=== PATIENT | female | born 1950 | race Caucasian/White ===

== ENCOUNTER 2018-10-05 22:35 | Emergency (ER) | payer OTHER ==
[~2018-10-05] VITALS: Ht 157.5 cm; Wt 61.2 kg
[2018-10-05] MEDS ORDERED: METFORMIN HCL500 MG (22:49)
[2018-10-06] MEDS ORDERED: [UNRECOGNIZED DRUG - OTHER] (20:30)
== END 2018-10-06 07:29 | disposition home or self-care (01) ==
LOC: ER 22:35
DX: E11.65 Type 2 diabetes mellitus with hyperglycemia (principal); R11.2 Nausea with vomiting, unspecified; Z79.84 Long term (current) use of oral hypoglycemic drugs

== ENCOUNTER 2018-10-06 20:19 | Emergency (ER) | payer OTHER ==
[~2018-10-06] VITALS: Ht 157.5 cm; Wt 92.5 kg
[~2018-10-06 20:19] MED LIST: METFORMIN HCL500 MG
[2018-10-06] MEDS ORDERED: [UNRECOGNIZED DRUG - OTHER] (20:30)
== END 2018-10-06 23:40 | disposition home or self-care (01) ==
LOC: ER 20:19
DX: J09.X2 Influenza due to identified novel influenza A virus with other respiratory manifestations (principal); R50.9 Fever, unspecified

== ENCOUNTER 2021-10-03 16:35 | Emergency (ER) | payer OTHER ==
[~2021-10-03] VITALS: Ht 157.5 cm; Wt 56.2 kg
[~2021-10-03 16:35] MED LIST changes: +[UNRECOGNIZED DRUG - OTHER]
[2021-10-03] MEDS ORDERED: CARBIDOPA-LEVO1 EA10 (17:37)
[2021-10-03] MEDS ORDERED: METFORMIN HCL850 M1 PO (17:37)
== END 2021-10-03 22:28 | disposition home or self-care (01) ==
LOC: ER 16:35
DX: S09.90XA Unspecified injury of head, initial encounter (principal); W08.XXXA Fall from other furniture, initial encounter; Y93.9 Activity, unspecified; Y92.019 Unspecified place in single-family (private) house as the place of occurrence of the external cause; G20 Parkinson's disease

== ENCOUNTER 2024-07-11 19:45 | Inpatient (IN) | payer OTHER ==
[~2024-07-11] VITALS: Ht 157.5 cm; Wt 51.7 kg
[~2024-07-11 19:45] MED LIST changes: +CARBIDOPA-LEVO1 EA10; +METFORMIN HCL850 M1 PO
--- NOTE | 2024-07-11 20:22 | NUR ---
SE RECIBE PTE ALERTA Y ORIENTADA X3 CUAL REFIERE SE PRIYA HOY EN LA NOCHE DE RAJINDER PROPIOS PIES Y SE GOLPEO EN LA YARY. NIEGA NAUSES, VOMITOS NI PERDIDA DE CONOCIMIENTO. SE KATIE S/V Y SE UBICA.
--- NOTE | 2024-07-12 03:45 | NUR ---
DR. RICHMOND EVALUA PTE, AL MOMENTO ORDENA XRAYS LOS CUALES SE NOTIFICAN.
[2024-07-12] MEDS ORDERED: KETOROLAC TROMETHAMINE 30 MG VIAL IV STA (03:51)
[2024-07-12] MEDS ORDERED: 0.9 % SODIUM CHLORIDE 1,000 ML IV STA (03:51)
[2024-07-12] MEDS ORDERED: MORPHINE SULFATE 4 MG/ML VIAL IV STA (03:52)
[2024-07-12] MEDS ORDERED: KETOROLAC TROMETHAMINE 30 MG VIAL ONE (04:10)
[2024-07-12 04:58] LABS: BASO % 0.2 % (0.1-1.2); EOS # 0.01 (0.04-0.54); EOS % 0.1 % (0.7-7.0); HEMATOCRIT 30.3 % (34.1-44.9); HEMOGLOBIN 9.6 g/dL (11.2-15.7); LYMPH # 0.86 (1.18-3.74); LYMPH % 6.2 % (19.3-53.1); MEAN CORPUSCULAR HEMOGLOBIN 20.7 pg (25.6-32.2); MONO # 0.57 (0.24-0.82); MONO % 4.1 % (4.7-12.5); NEUT # 12.28 (1.56-6.13); NEUT % 89.2 % (34.0-71.1); PLATELET COUNT 151 K/uL (163-369); RED BLOOD COUNT 4.63 M/uL (3.93-5.22); RED CELL DISTRIBUTION WIDTH 14.8 % (11.6-14.4)
[2024-07-12 05:13] LABS: INR 1.15; PARTIAL THROMBOPLASTIN TIME 29.3 SECONDS (22.0-34.0); PROTHROMBIN TIME 12.4 SECONDS (9.0-11.5)
[2024-07-12 05:18] LABS: ALBUMIN 3.9 gm/dL (3.4-5.0); BILIRUBIN TOTAL 0.66 mg/dL (0.3-1.2); CALCIUM 9.1 mg/dL (8.5-10.1); CREATININE SERUM 1.11 mg/dL (0.55-1.02); GFR 47.92; GLOBULINA 3.5 G/DL (2.4-3.5); POTASSIUM 4.2 mEq/L (3.5-5.1); TOTAL PROTEIN 7.4 gm/dL (6.4-8.2)
--- NOTE | 2024-07-12 12:00 | NUR ---
PTE ALERTA, ORIENTADA EN PERSONA, ACOMPANADA DE FAMILIAR. EN FELICITAS BAJA CON BARANDAS ELEVADFAS POR SEGURIDAD. CANALIZACION PATENTE, ASHA DE EDEMA Y ERITEMA, RECIBIENDO IV FLUIDS. PEND CONSULTA CON DR BOATENG
[2024-07-12] MEDS ORDERED: CEFTRIAXONE SODIUM 2,000 MG in 0.9 % SODIUM CHLORIDE 100 ML IV SCH (17:34)
[2024-07-12] MEDS ORDERED: CARBIDOPA/LEVODOPA 25/100 UDTAB PO SCH (17:38)
[2024-07-12] MEDS ORDERED: DEXTROSE 50 % IN WATER 0.5 G/ML DISP.SYRIN IV PRN (17:45)
[2024-07-12] MEDS ORDERED: 0.9 % SODIUM CHLORIDE 1,000 ML IV SCH (17:45)
[2024-07-12] MEDS ORDERED: ACETAMINOPHEN 325 MG TABLET PO PRN (17:45)
[2024-07-12] MEDS ORDERED: INSULIN LISPRO 1,000 UNIT/10 ML UNITS SUBCUTANEO PRN (17:45)
[2024-07-12] MEDS ORDERED: MORPHINE SULFATE 2 MG/ML CARTRIDGE IV PRN ×2 (17:45→21:30)
[2024-07-12] MEDS ORDERED: SODIUM CL 0.9% 100 ML IV.SOLN IV ONE (19:33)
[2024-07-13] VITALS: BP 124/56; O2SAT 91
[2024-07-13 08:47] VITALS: BP 110/68; O2SAT 96
[2024-07-13 15:52] VITALS: BP 102/67; O2SAT 100
[2024-07-13] MEDS ORDERED: PATIENTS OWN MEDICATION (MEDICAMENTO EN PISO) PO SCH (17:00)
[2024-07-13] MEDS ORDERED: RISPERIDONE 0.25 MG TABLET PO SCH (17:00)
[2024-07-13 19:10] LABS: URINE APPEARANCE Cloudy; URINE BILIRRUBIN Negative (NEGATIVE); URINE BLOOD Large; URINE COLOR Yellow; URINE KETONE Trace (NEGATIVE); URINE LEUKOCYTE Trace; URINE NITRATE Negative; URINE PROTEIN 30 (NEGATIVE)
[2024-07-13 19:14] LABS: URINE BACTERIA 999.9 uL (0.0-1933); URINE EPITHELIAL CELLS 23.4 uL (0.0-38.8); URINE RBC 2008.6 uL (0.0-20.8); URINE WBC 81.2 uL (0.0-23.2)
[2024-07-13 19:33] LABS: URINE CAST 0.44 uL (0.0-1.40); URINE CRYSTALS FEW /HPF; URINE GLUCOSE >=1000 MG/DL (NEGATIVE)
[2024-07-13 19:34] LABS: URINE MUCUS SCANT
[2024-07-14 00:01] VITALS: BP 127/79; O2SAT 98
[2024-07-14 07:02] LABS: BASO % 0.2 % (0.1-1.2); EOS # 0.04 (0.04-0.54); EOS % 0.3 % (0.7-7.0); HEMATOCRIT 33.6 % (34.1-44.9); LYMPH # 0.59 (1.18-3.74); LYMPH % 4.1 % (19.3-53.1); MEAN CORPUSCULAR HEMOGLOBIN 22.1 pg (25.6-32.2); MONO # 0.81 (0.24-0.82); MONO % 5.6 % (4.7-12.5); NEUT # 13.01 (1.56-6.13); NEUT % 89.3 % (34.0-71.1); PLATELET COUNT 131 K/uL (163-369); RED BLOOD COUNT 4.97 M/uL (3.93-5.22); RED CELL DISTRIBUTION WIDTH 17.3 % (11.6-14.4)
[2024-07-14 08:23] VITALS: BP 139/79; O2SAT 97
[2024-07-14] MEDS ORDERED: PATIENTS OWN MEDICATION (MEDICAMENTO EN PISO) PO SCH (09:00)
[2024-07-14] MEDS ORDERED: POVIDONE-IODINE 118 ML BOTT TOP ONE (17:11)
[2024-07-14] MEDS ORDERED: ISOPROPYL ALCOHOL 30 ML OUNCE TOP ONE (17:11)
[2024-07-14] MEDS ORDERED: CEFAZOLIN SODIUM 1,000 MG VIAL ONE (18:22)
[2024-07-14] MEDS ORDERED: SODIUM CHLORIDE 0.45 % 1,000 ML IV SCH (18:30)
[2024-07-14] MEDS ORDERED: PROMETHAZINE HCL 50 MG/ML AMPUL IM PRN (18:30)
[2024-07-14] MEDS ORDERED: MEPERIDINE HCL/PF 50 MG/ML VIAL IM PRN (18:30)
[2024-07-14] MEDS ORDERED: ONDANSETRON 4 MG TAB.RAPDIS PO PRN (18:30)
[2024-07-14] MEDS ORDERED: ONDANSETRON HCL 2 MG/ML VIAL IV PRN (18:30)
[2024-07-14] MEDS ORDERED: TRAMADOL HCL 50 MG TABLET PO PRN (18:30)
[2024-07-14] MEDS ORDERED: CEFAZOLIN SODIUM 1,000 MG VIAL IV ONE (19:15)
[2024-07-15 00:31] VITALS: BP 127/69; O2SAT 97
[2024-07-15] MEDS ORDERED: CELECOXIB 200 MG CAPSULE PO SCH (01:00)
[2024-07-15 08:03] LABS: BASO % 0.2 % (0.1-1.2); EOS # 0.11 (0.04-0.54); HEMATOCRIT 27.7 % (34.1-44.9); LYMPH # 0.69 (1.18-3.74); LYMPH % 6.4 % (19.3-53.1); MEAN CORPUSCULAR HEMOGLOBIN 21.9 pg (25.6-32.2); MONO # 0.75 (0.24-0.82); NEUT % 85.1 % (34.0-71.1); PLATELET COUNT 146 K/uL (163-369); RED BLOOD COUNT 4.06 M/uL (3.93-5.22); RED CELL DISTRIBUTION WIDTH 17.2 % (11.6-14.4)
[2024-07-15 08:14] LABS: ALBUMIN 2.7 gm/dL (3.4-5.0); BILIRUBIN TOTAL 0.68 mg/dL (0.3-1.2); CALCIUM 7.6 mg/dL (8.5-10.1); CREATININE SERUM 0.83 mg/dL (0.55-1.02); GFR 67.02; GLOBULINA 2.8 G/DL (2.4-3.5); POTASSIUM 4.03 mEq/L (3.5-5.1); TOTAL PROTEIN 5.5 gm/dL (6.4-8.2)
[2024-07-15 08:32] VITALS: BP 118/66; O2SAT 99
[2024-07-15 08:34] LABS: HEMOGLOBIN 8.9 g/dL (11.2-15.7)
[2024-07-15] MEDS ORDERED: RIVAROXABAN 10 MG TAB PO SCH (09:00)
[2024-07-15] MEDS ORDERED: PANTOPRAZOLE SODIUM 40 MG TABLET.DR PO SCH (09:00)
[2024-07-15 13:13] LABS: COVID-19 AG NEGATIVE (NEGATIVE)
[2024-07-15 16:00] VITALS: BP 103/67; O2SAT 96
[2024-07-15] MEDS ORDERED: IRON FUM,PS/FOLIC/BCOMP,C NO.9 1 CAP CAPSULE PO SCH (17:52)
[2024-07-15] MEDS ORDERED: IRON FUM,PS/FOLIC/BCOMP,C NO.9 1 CAP CAPSULE PO NR (19:00)
[2024-07-15] MEDS ORDERED: AMINO ACIDS 1 EACH TABLET PO NR (19:00)
[2024-07-16 00:50] VITALS: BP 125/79; O2SAT 98
[2024-07-16 06:21] LABS: BASO % 0.3 % (0.1-1.2); EOS % 4.1 % (0.7-7.0); HEMATOCRIT 34.7 % (34.1-44.9); HEMOGLOBIN 11.4 g/dL (11.2-15.7); LYMPH # 0.74 (1.18-3.74); LYMPH % 7.5 % (19.3-53.1); MEAN CORPUSCULAR HEMOGLOBIN 23.8 pg (25.6-32.2); MONO # 0.66 (0.24-0.82); MONO % 6.7 % (4.7-12.5); NEUT # 7.97 (1.56-6.13); NEUT % 81.1 % (34.0-71.1); RED CELL DISTRIBUTION WIDTH 20.1 % (11.6-14.4)
[2024-07-16 06:56] LABS: PLATELET COUNT 115 K/uL (163-369)
[2024-07-16 08:36] VITALS: BP 112/69; O2SAT 95
[2024-07-16] MEDS ORDERED: SENNA/DOCUSATE SODIUM 1 TAB TABLET PO SCH (09:00)
[2024-07-16] MEDS ORDERED: IRON FUM,PS/FOLIC/BCOMP,C NO.9 1 CAP CAPSULE PO SCH (09:00)
[2024-07-16 16:00] VITALS: BP 132/83; O2SAT 100
[2024-07-16] MEDS ORDERED: AMINO ACIDS 1 EACH TABLET PO SCH (17:00)
[2024-07-17 01:06] VITALS: BP 154/79; O2SAT 98
[2024-07-17 08:36] VITALS: BP 125/76; O2SAT 98
[2024-07-17 17:00] VITALS: BP 128/80; O2SAT 97
== END 2024-07-17 18:00 | disposition home or self-care (01) | DRG 482 ==
LOC: ER 19:45 → SURH 07-12 17:49
PROVIDERS: General Practice; Orthopaedic Surgery; Student in an Organized Health Care Education/Training Program; ADMIT Internal Medicine; ATTEND Internal Medicine
PROC: BW2GZZZ Computerized Tomography (CT Scan) of Pelvic Region (ICD-10-PCS; 2024-07-12)
PROC: 30233N1 Transfusion of Nonautologous Red Blood Cells into Peripheral Vein, Percutaneous Approach (ICD-10-PCS; 2024-07-13)
PROC: 0MBB0ZZ Excision of Left Upper Extremity Bursa and Ligament, Open Approach (ICD-10-PCS; 2024-07-14)
PROC: 0QS706Z Reposition Left Upper Femur with Intramedullary Internal Fixation Device, Open Approach (ICD-10-PCS; principal; 2024-07-14 14:00)
DX: S72.142A Displaced intertrochanteric fracture of left femur, initial encounter for closed fracture (principal); D64.9 Anemia, unspecified; W13.3XXA Fall through floor, initial encounter; Y92.9 Unspecified place or not applicable; Y93.01 Activity, walking, marching and hiking; Y99.9 Unspecified external cause status; G20.A1 Parkinson's disease without dyskinesia, without mention of fluctuations; E11.9 Type 2 diabetes mellitus without complications; Z79.4 Long term (current) use of insulin

== ENCOUNTER 2024-07-31 12:24 | Outpatient (CLI) | payer OTHER | END 2024-07-31 12:26 | disposition home or self-care (01) | LOC: RAD 12:24 | PROVIDERS: ATTEND Orthopaedic Surgery | DX: S72.042D Displaced fracture of base of neck of left femur, subsequent encounter for closed fracture with routine healing (principal); S52.532D Colles' fracture of left radius, subsequent encounter for closed fracture with routine healing ==